=== PATIENT | male | born 1960 | race Caucasian/White ===

== ENCOUNTER 2022-03-20 16:32 | Emergency (ER) | payer BC, SELFPAY ==
--- NOTE | ~2022-03-20 | XR_ITS ---
EXAM: XR wrist LT min 3V DATE: 03/20/2022 17:06 HISTORY: swelling to ulnar side,pain throughout wrist x3days noinjury . COMPARISON: None available. FINDINGS: Decreased mineralization. No fracture or dislocation. 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 Likely prior trapezium surgery/resection. Marked subchondral cyst f ormation in multiple bones. Chondrocalcinosis. IMPRESSION: Severe degenerative/arthritic changes in the left wrist. No acute osseous finding. Reviewed, dictated and finalized at location K. IMPRESSION: Severe degenerative/arthritic changes in the left wrist. No acute o sseous finding.
[2022-03-20 16:43] VITALS: BP 160/92; PULSE 71; RESP 16; TEMP 36.7; O2SAT 99
[2022-03-20 20:06] VITALS: BP 164/98; PULSE 74; RESP 16; TEMP 36.8; O2SAT 100
[2022-03-20] MEDS: traMADol HCL (*CRX) 50 MG TABLET PO (20:49)
--- NOTE | 2022-03-20 20:49 | ED.UPPEXIN ---
HPI - Extremity Injury (Upper) General Chief Complaint: Extremity Injury, Upper <Allison Ortega PA-C - Last Filed: 03/20/22 22:13> Stated Complaint: L ARM PAIN, NO INJURY <Allison Ortega PA-C - Last Filed: 03/20/22 22:13> Time Seen by Provider: 03/20/22 20:06 <Allison Ortega PA-C - Last Filed: 03/20/22 22:13> Source: patient <ANDREZ Allison Last Filed: 03/20/22 22:13> Mode of arrival: ambulatory <ANDREZ Allison Last Filed: 03/20/22 22:13> Limitations: no limitations <Allison Ortega PA-C - Last Filed: 03/20/22 22:13> History of Present Illness HPI narrative: This is a 61-year-old male that presents to the emergency department for left wrist pain. Noted over the last couple of days. No recent injury or trauma. Reports swelling and redness of the area. No previous history of the same. Denies any recent procedures or surgeries. Denies fever. <Allison Ortega PA-C - Last Filed: 03/20/22 22:13> Related Data Allergies/Adverse Reactions: Allergies Allergy/AdvReac Type Severity Reaction Status Date / Time Penicillins Allergy Unknown Hives Unverified 03/20/22 20:48 <Allison Ortega PA-C - Last Filed: 03/20/22 22:13> Review of Systems Review of Systems: CONSTITUTIONAL: Denies fever, chills MUSCULOSKELETAL: Reports joint pain, and myalgia. <ANDREZ Allison Last Filed: 03/20/22 22:13> All systems reviewed & are unremarkable except as noted in HPI and below <Allison Ortega PA-C - Last Filed: 03/20/22 22:13> [facility] Past Medical History Medical History: Medical History (Updated 03/21/22 @ 00:00 by Background Daemsusan) No active medical problems <Allison Ortega PA-C - Last Filed: 03/20/22 22:13> Family History Family History: Family History (System 10/25/20 @ 14:17 by Krystle Mcnulty) Mother Family history of diabetes mellitus in first degree relative Family history of coronary artery disease <Allison Ortega PA-C - Last Filed: 03/20/22 22:13> Social History Social History: Social History (Updated 03/20/22 @ 20:51 by Allison Ortega PA-C) Smoking status: Former smoker Smoking end date: 09/23/87 Alcohol intake: current Substance use: never <Allison Ortega PA-C - Last Filed: 03/20/22 22:13> Exam Narrative: GENERAL: Well-appearing, well-nourished, and in no acute distress. HEAD: Normocephalic, atraumatic. EYES: EOMI. EXTREMITIES: Normal range of motion. Mild edema about the left wrist medial aspect with mild redness noted to the area. No lymphangitic streaking. Normal radial pulse. Normal sensation SKIN: Warm, dry, no rash. NEURO: No focal deficits. Alert and oriented x3. PSYCH: Normal mood and affect <Allison Ortega PA-C - Last Filed: 03/20/22 22:13> Course ASSISTANT CASINO SHIFT MANAGER/PA Physician Supervision For this patient encounter, I reviewed the ASSISTANT CASINO SHIFT MANAGER or PA documentation, treatment plan, and medical decision making <Medhat Lee MD - Last Filed: 03/21/22 00:59> Vital Signs Vital signs: Vital Signs Temperature 98.1 F 03/20/22 16:43 Pulse Rate 71 03/20/22 16:43 Respiratory Rate 16 03/20/22 16:43 Blood Pressure 160/92 H 03/20/22 16:43 Pulse Oximetry 99 03/20/22 16:43 Oxygen Delivery Room Air 03/20/22 16:43 Temperature 98.3 F 03/20/22 20:06 Pulse Rate 74 03/20/22 20:06 Respiratory Rate 16 03/20/22 20:06 Blood Pressure 164/98 H 03/20/22 20:06 Pulse Oximetry 100 03/20/22 20:06 Oxygen Delivery Room Air 03/20/22 20:06 <Allison Ortega PA-C - Last Filed: 03/20/22 22:13> Vital Signs Temperature 98.1 F 03/20/22 16:43 Pulse Rate 71 03/20/22 16:43 Respiratory Rate 16 03/20/22 16:43 Blood Pressure 160/92 H 03/20/22 16:43 Pulse Oximetry 99 03/20/22 16:43 Oxygen Delivery Room Air 03/20/22 16:43 Temperature 98.3 F 03/20/22 20:06 Pulse Rate 74 03/20/22 20:06 Respiratory Rate 16 03/20/22 20:06 Blood Pressure
[2022-03-20 20:59] LABS: Basophils Percent Auto 0.1 % (0.2-1.2); Eosinophils Absolute Auto 0.1 K/mm3 (0-0.3); Eosinophils Percent Auto 0.6 % (0-4.4); Hematocrit 43.6 % (42.0-52.0); Hemoglobin 14.8 g/dL (14.0-18.0); Immature Granulocyte Absolute 0.05 K/mm3 (0.00-0.031); Immature Granulocyte Percent A 0.3 % (0-0.5); Lymphocytes Absolute Auto 1.87 K/mm3 (0.9-3.2); Mean Corpuscular HGB Conc 33.9 g/dl (32-36); Mean Corpuscular Hemoglobin 31.2 pg (26-34); Mean Platelet Volume 8.2 fl (7.4-10.4); Monocytes Absolute Auto 0.9 K/mm3 (0.1-0.6); Monocytes Percent Auto 6.1 % (2.6-8.5); Neutrophils Absolute Auto 11.4 K/mm3 (1.3-6.7); Neutrophils Percent Auto 79.9 % (45.5-73.1); Platelet Count Result 283 k/mm3 (150-375); Red Blood Count 4.74 M/mm3 (4.6-6.20); Red Cell Distribution Width 11.9 % (11.5-14.5); White Blood Count 14.3 K/mm3 (4.5-10.0)
[2022-03-20 21:11] LABS: Anion Gap 5 mmol/L (8-16); Blood Urea Nitrogen 12 mg/dL (9-20); CRP 1.8 mg/dL (<1.0); Calcium 9.2 mg/dL (8.4-10.2); Carbon Dioxide 29 mmol/L (22-30); Chloride 102 mmol/L (98-107); Estimated CRCL calculation 94 ml/min; Estimated Glomerular Filt Rate > 60; Glucose 113 mg/dL (65-110); Sodium 136 mmol/L (137-145); Uric Acid 4.2 mg/dL (3.5-8.5)
[2022-03-20 21:58] LABS: Erythrocyte Sedimentation Rate 14 mm/hr (0-20)
[2022-03-20] MEDS: predniSONE 20 MG TABLET 40 MG PO (22:10)
== END 2022-03-20 22:19 | disposition home or self-care (01) ==
PROVIDERS: Physician Assistant; Emergency Provider Emergency Medicine; PCP Family Medicine
DX: M25.532 Pain in left wrist (principal); Z87.891 Personal history of nicotine dependence
CPT/HCPCS: 36415; 73110; 80048; 84550; 85025; 85652; 86140; 99283; A9270; J7512